=== PATIENT | female | born 1970 | race Caucasian/White ===

== ENCOUNTER 2021-08-30 09:50 | Day surgery (SDC) | payer OTHER ==
[~2021-08-30] VITALS: Ht 160 cm; Wt 78.5 kg
[2021-08-30] MEDS ORDERED: fentaNYL citrate 0.05 MG/ML VIAL ONE (12:04)
[2021-08-30] MEDS ORDERED: LIDOCAINE 2% 100 MG/5 ML UJET TP ONE (12:05)
[2021-08-30] MEDS ORDERED: fentaNYL citrate 0.05 MG/ML VIAL IVP ONE (13:20)
== END 2021-08-30 13:00 | disposition home or self-care (01) ==
LOC: MMU 09:50 → MDS 09:50
PROVIDERS: ATTEND Internal Medicine Gastroenterology
DX: Z12.11 Encounter for screening for malignant neoplasm of colon (principal); K76.0 Fatty (change of) liver, not elsewhere classified; E11.9 Type 2 diabetes mellitus without complications; Z79.84 Long term (current) use of oral hypoglycemic drugs; Z20.822 Contact with and (suspected) exposure to COVID-19
CPT/HCPCS: 45378; 81025; 87426; J3010